=== PATIENT | male | born 2000 | race Caucasian/White ===

== ENCOUNTER 2023-08-04 13:21 | Emergency (ER) | payer OTHER, SELFPAY ==
[2023-08-04 13:26] VITALS: BP 109/65; PULSE 680; RESP 16; TEMP 36.7; O2SAT 99; BMI 29.1
--- NOTE | 2023-08-04 13:38 | ED_ITS ---
HPI - Ear Problem General Time Seen by Provider: 13:38 Date Seen: 08/04/23 Chief complaint: Ear/Nose/Throat Problem Stated complaint: R ear pain/clogged Time Seen by Provider: 08/04/23 13:29 Source: patient, RN notes reviewed and tar leveler Mode of arrival: ambulatory Limitations: no limitations History of Present Illness HPI Narrative: This 23-year-old male is coming in with his right ear feeling clogged. He states he can barely hear out of it. No significant pain. He has not been sick with anything, no underlying cough cold symptoms. He may have had issues with his ear sometimes as a child but denies any chronic wax buildup. He tried irrigating and using a tweezers at home without improvement. MD Complaint: decreased hearing Location: right ear Related Data Home Medications Medication Instructions Recorded Confirmed No Known Home Medications 08/04/23 08/04/23 Allergies Allergy/AdvReac Type Severity Reaction Status Date / Time No Known Drug Allergies Allergy Verified 08/04/23 13:35 Review of Systems Narrative: As per HPI. PFSH PFSH Social History Smoking Status: Never smoker Do you use any of these nicotine containing products: None How often do you have a drink containing alcohol: never How often do you have six or more drinks on one occasion: Never AUDIT-C Alcohol total score: 0 Non-prescribed substance use: denies use Exam Const: Vital Signs, click to edit/add: Vital Signs - 24 hr 08/04/23 13:26 Temperature 98.1 F Pulse Rate [Pulse Oximeter] 680 H Respiratory Rate 16 Blood Pressure [Ri ght Upper Arm] 109/65 Pulse Oximetry 99 Oxygen Delivery Me thod Room Air Alert and interactive 23-year-old male seen exam room 4. Sclera clear, conju gate it gaze, face atraumatic. He has obvious wax in his right canal occluding. Did use a lighted curette was able to remove some. There was still significant amount of wax occluding more proximally in the canal. Will need nursing staff to do an ear irrigation to see if we can remove the rest as it is too deep to curette out. Documenting provider has reviewed patient's vital signs: yes Course Course ED Course: Will have nursing staff irrigate his right ear. Reevaluation(s) Time of Reevaluation #1: 14:25 Reevaluation #1: Nursing staff states that they irrigated his ear and have cleared the cerumen. Patient reportedly is requesting his left ear to be irrigated 2. I did re- evaluate patient at this point, left TM canal are clear, no evidence of any wax buildup. His right tympanic membrane is visualized the bone now, is clear and translucent. There is a little erythema along the posterior wall of the canal but no abrasion or bleeding. Patient and I discussed that he might have a little noise sensitivity after the wax being removed in the ear canal maybe a little sore for a couple of days. Vital Signs Vital signs: Initial Vital Signs Temperature 98.1 F 08/04/23 13:26 Temperature Source Temporal Artery Scan 08/04/23 13:26 Pulse Rate 680 H 08/04/23 13:26 Respiratory Rate 16 08/04/23 13:26 Blood Pressure 109/65 08/04/23 13:26 Blood Pressure Mean 79 08/04/23 13:26 Blood Pressure Position Sitting 08/04/23 13:26 Pulse Oximetry 99 08/04/23 13:26 Oxygen Delivery Method Room Air 08/04/23 13:26 Vital Signs Temperature 98.1 F 08/04/23 13:26 Pulse Rate 680 H 08/04/23 13:26 Respiratory Rate 16 08/04/23 13:26 Blood Pressure 109/65 08/04/23 13:26 Pulse Oximetry 99 08/04/23 13:26 Oxygen Delivery Method Room Air 08/04/23 13:26 Temperature 98.1 F 08/04/23 13:26 Pulse Rate 680 H 08/04/23 13:26 Respiratory Rate 16 08/04/23 13:26 Blood Pressure 109/65 08/04/23 13:26 Pulse Oximetry 99 08/04/23 13:26 Oxygen Delivery Method Room Air 08/04/23 13:26 Discharge Plan Discharge Clinical Impression: Impacted cerumen of right ear Patient Disposition: Home, Self-Care Condition: Stable Additional Instructions: There are [id number] drops sold the at pharmacies to help prevent wax buildup. One is called Debrox drops. Can use these to help prevent wax buildup. Follow package instructions for dosing. If your right ear canal is sore, can use Tylenol or ibuprofen per bottle directions. Activity Level: Activity as Tolerated Prescriptions: No Action No Known Home Medications Stand Alone Forms: [facility]
[2023-08-04 14:00] VITALS: PULSE 68
--- NOTE | 2023-08-04 14:36 | ED.NURSE ---
Pt right ear irrigated with warm water. Pt stated hearing better after the irrigation. MD notified.
== END 2023-08-04 14:35 | disposition home or self-care (01) ==
PROVIDERS: Emergency Provider Family Medicine
DX: H61.21 Impacted cerumen, right ear (principal)
CPT/HCPCS: 99282; 99283